=== PATIENT | male | born 2000 | race Caucasian/White ===

== ENCOUNTER 2022-08-07 16:47 | Emergency (ER) | payer OTHER ==
[2022-08-07 17:27] LABS: Absolute Lymphocytes (CBC) 1.3 K/uL (0.7-4.9); Hematocrit 43.8 % (39.6-49.0); Lymphocytes % 17.5 % (15.3-44.8); MPV 8.3 fL (7.6-11.3); RBC Red Blood Cell Count 4.82 M/uL (4.33-5.43)
[2022-08-07 17:31] LABS: Protime INR 1.2
[2022-08-07] MEDS ORDERED: NA CHLORIDE 0.9% 1,000 ML ONE (17:31)
[2022-08-07 17:38] LABS: ALT/SGPT 52 U/L (12-78); AST/SGOT 27 U/L (15-37); Albumin 4.2 g/dL (3.4-5.0); Alkaline Phosphatase 77 U/L (45-117); BUN Blood Urea Nitrogen 21 mg/dL (7-18); Bicarbonate 28 mmol/L (21-32); Bilirubin Direct 0.1 mg/dL (0-0.2); Bilirubin Total 0.4 mg/dL (0.2-1.0); Glomerular Filtration Rate 111 ml/min (=/>90); Glucose Level 96 mg/dL (74-106); Potassium 3.9 mmol/L (3.5-5.1); Protein, Total 7.5 g/dL (6.4-8.2); Sodium Level 139 mmol/L (136-145)
[2022-08-07 18:22] LABS: Urine Blood Negative (Negative); Urine Glucose Negative (Negative); Urine Protein Negative (Negative); Urine Specific Gravity 1.015 (1.005-1.030); Urine pH 6.5 (5.0-7.0)
[2022-08-07 18:41] LABS: Barbiturates NEGATIVE (NEGATIVE); Benzodiazepines NEGATIVE (NEGATIVE); Cocaine NEGATIVE (NEGATIVE); METHAMPHETAM NEGATIVE (NEGATIVE); Methadone NEGATIVE (NEGATIVE); Opiates NEGATIVE (NEGATIVE); Phencyclidine NEGATIVE (NEGATIVE); THC Cannibis NEGATIVE (NEGATIVE)
--- NOTE | 2022-08-07 18:48 | RAD REPORT ---
EXAM DESCRIPTION: CT - Head Brain Wo Cont - 08/07/2022 6:43 pm CLINICAL HISTORY: unresponsive Headache, drowsiness, alteration of consciousness. COMPARISON: No comparisons TECHNIQUE: All CT scans are performed using dose optimization technique as appropriate and may inclu de automated exposure control or mA/KV adjustment according to patient size. FINDINGS: No intracranial hemorrhage, hydrocephalus or extra-axial fluid collection.No areas of brai n edema or evidence of midline shift. The paranasal sinuses and mastoids are clear. The calvarium is intact. IMPRESSION: No acute intracranial abnormality.
--- NOTE | 2022-08-07 19:39 | EDPHYS ---
Physician Documentation [facility] Name: Rosales Cordova Age: 21 yrs Sex: Male : 2000 Arrival Date: 08/07/2022 Time: 16:50 Bed 6 Private MD: ED Physician Gordon Nguyen HPI: 08/07 17:00 This 21 yrs old Male presents to ER via EMS with complaints of Possible Overdose. cp 17:00 The patient presents with decreased mental status. Onset: The symptoms/episode cp began/occurred today. Possible causes: drug use. 17:00 Associated signs and symptoms: The patient has no apparent associated signs or cp symptoms. Current symptoms: In the emergency department the patient's symptoms have improved. Patient's baseline: Neuro: alert and fully oriented, Motor: no deficits, Ambulation: walks without assistance, Speech: normal. Patient is currently an inmate and was reportedly found outside on ground. Historical: - Allergies: 16:52 No Known Allergies; iw - Home Meds: 16:52 None [Active]; iw - PMHx: 16:52 None; iw - PSHx: 16:52 None; iw ROS: 17:05 Constitutional: Negative for body aches, chills, fever, poor PO intake. cp 17:05 Eyes: Negative for injury, pain, redness, and discharge. cp 17:05 Neck: Negative for pain with movement, pain at rest, stiffness. 17:05 Cardiovascular: Negative for chest pain, palpitations. 17:05 Respiratory: Negative for cough, shortness of breath, wheezing. 17:05 Abdomen/GI: Negative for abdominal pain, nausea, vomiting, and diarrhea. 17:05 Neuro: Negative for headache. 17:05 All other systems are negative. Exam: 17:08 ECG was reviewed by the Attending Physician. cp 17:10 Constitutional: The patient appears in no acute distress, alert, awake, cp non-diaphoretic, non-toxic, well developed, well nourished. 17:10 Head/Face: Normocephalic, atraumatic. cp 17:10 Eyes: Periorbital structures: appear normal, Pupils: equal, round, and reactive to light and accomodation, Conjunctiva: normal, no exudate, no injection, Sclera: no appreciated abnormality, Lids and lashes: appear normal, bilaterally. 17:10 ENT: External ear(s): are unremarkable, Ear canal(s): are normal, clear, TM's: dullness, bilaterally, Nose: is normal, Mouth: Lips: moist, Oral mucosa: moist, Posterior pharynx: Airway: no evidence of obstruction, patent. 17:10 Chest/axilla: Inspection: normal, Palpation: is normal, no crepitus, no tenderness. 17:10 Cardiovascular: Rate: normal, Rhythm: regular, Heart sounds: murmur, not appreciated, Edema: is not appreciated, JVD: is not appreciated. 17:10 Respiratory: the patient does not display signs of respiratory distress, Respirations: normal, no use of accessory muscles, no retractions, labored breathing, is not present, Breath sounds: are clear throughout, no decreased breath sounds, no stridor, no wheezing. 17:10 Abdomen/GI: Inspection: abdomen appears normal, Palpation: abdomen is soft and non-tender, in all quadrants. 17:10 Back: pain, is absent, ROM is normal. 17:10 Neuro: Orientation: unable to test, uncooperative, Mentation: responsive to voice able to follow commands. Vital Signs: 16:53 BP 124 / 82; Pulse 65; Resp 16; Temp 98.2; Pulse Ox 98% on R/A; iw 17:58 BP 102 / 84; Pulse 68; Resp 16; Pulse Ox 99% on R/A; iw 19:56 BP 128 / 79; Pulse 68; Resp 16; Pulse Ox 100% on R/A; jb4 MDM: 17:01 Patient medically screened. 19:38 Data reviewed: vital signs, nurses notes, lab test result(s), EKG, radiologic studies, cp CT scan. 19:38 Test interpretation: by ED physician or midlevel provider: ECG. Counseling: I had a cp detailed discussion with the patient and/or guardian regarding: the historical points, exam findings, and any diagnostic results supporting the discharge/admit diagnosis, lab results, radiology results, to return to the emergency department if symptoms worsen or persist or if there are any questions or concerns that arise at home. ED course: Patient spoke with nurse and informed her he had taken some mushrooms prior to be brought to ED. VSS. Will discharge back into custody of [employer] guards. 08/07 16:56 Order name: Acetaminophen; Complete Time: 19:27 08/07 16:56 Order name: Basic Metabolic Panel; Complete Time: 19:27 08/07 19:27 Interpretation: Normal except: BUN 21. 08/07 16:56 Order name: CBC with Diff; Complete Time: 19:27 08/07 19:27 Interpretation: Reviewed. 08/07 16:56 Order name: ETOH Level; Complete Time: 19:27 08/07 19:31 Interpretation: Reviewed. 08/07 16:56 Order name: Hepatic Function; Complete Time: 19:27 iw 08/07 19:31 Interpretation: Reviewed. 08/07 16:56 Order name: PT-INR; Complete Time: 19:27 08/07 19:31 Interpretation: Reviewed. 08/07 16:56 Order name: Ptt, Activated; Complete Time: 19:27 08/07 16:56 Order name: Salicylate; Complete Time: 19:27 08/07 16:56 Order name: Urine Drug Screen; Complete Time: 19:27 08/07 16:56 Order name: EKG; Complete Time: 16:57 08/07 17:08 Order name: CK; Complete Time: 19:27 08/07 19:32 Interpretation: Reviewed. 08/07 17:08 Order name: CT Head Brain wo Cont; Complete Time: 19:27 08/07 19:32 Interpretation: Report reviewed. 08/07 18:22 Order name: Urine Dipstick-Ancillary; Complete Time: 19:27 EDAR 08/07 16:56 Order name: EKG - Nurse/Tech; Complete Time: 17:18 08/07 16:56 Order name: IV Saline Lock; Complete Time: 17:18 08/07 16:56 Order name: Labs collected and sent; Complete Time: 17:18 08/07 16:56 Order name: Urine Dipstick-Ancillary (obtain specimen); Complete Time: 18:19 iw EC:08 Rate is 64 beats/min. Rhythm is regular. MO interval is normal. QRS interval is cp prolonged at 110 msec. QT interval is normal. T waves are Inverted in lead aVR. Interpreted by me. Reviewed by me. Administered Medications: 17:20 Drug: NS 0.9% 1000 ml Route: IV; Rate: 1 bolus; Site: right forearm; ph Disposition Summary: 08/07/22 19:38 Discharge Ordered Location: Home cp Problem: new cp Symptoms: have improved cp Condition: Stable cp Diagnosis - Encounter for observation for suspected toxic effect from ingested substance ruled cp out Followup: cp - With: Emergency Department - When: As needed - Reason: Worsening of condition Discharge Instructions: - Discharge Summary Sheet cp - Illegal Drug Use Information, Adult cp Forms: - Medication Reconciliation Form cp - Thank You Letter cp - Antibiotic Education cp - Prescription Opioid Use cp Signatures: Dispatcher [employer] Leora Morrissey RN RN iw Kelly Allison RN RN ph Gordon Herrera PA PA cp Corrections: (The following items were deleted from the chart) 17:08 16:56 Suicide Screening ([place]) ordered. toña ding
--- NOTE | 2022-08-07 19:39 | ER ---
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 Coronavirus screen: At this time, the client does not indicate any symptoms associated with coronavirus-19. Ebola Screen: Patient negative for fever greater than or equal to 101.5 degrees Fahrenheit, and additional compatible Ebola Virus Disease symptoms Patient denies exposure to infectious person. Patient denies travel to an Ebola-affected area in the 21 days before illness onset. No symptoms or risks identified at this time. Initial Sepsis Screen: Does the patient meet any 2 criteria? No. Patient's initial sepsis screen is negative. Does the patient have a suspected source of infection? No. Patient's initial sepsis screen is negative. Risk Assessment: Do you want to hurt yourself or someone else? Patient reports no desire to harm self or others. Onset of symptoms was August 07, 2022. 16:51 Method Of Arrival: EMS: [facility] iw 16:51 Acuity: TU 3 iw Historical: - Allergies: 16:52 No Known Allergies; iw - Home Meds: 16:52 None [Active]; iw - PMHx: 16:52 None; iw - PSHx: 16:52 None; iw Screenin:19 Nutritional screening: No deficits noted. Tuberculosis screening: No symptoms or risk iw factors identified. Fall Risk IV access (20 points). 19:30 Abuse screen: Denies threats or abuse. jb4 Assessment: 17:18 General: Appears in no apparent distress. Behavior is calm, quiet. Pain: Unable to use iw pain scale. Patient appears quiet. Neuro: Liriano Agitation-Sedation Scale (RASS): -1 Drowsy Level of Consciousness is awake, alert, Oriented to Moves all extremities. Full function. Cardiovascular: Patient's skin is warm and dry. Respiratory: Respiratory effort is even, unlabored, Respiratory pattern is regular, symmetrical. GI: Abdomen is flat, non-distended. Derm: Skin is intact, is healthy with good turgor. Musculoskeletal: Range of motion: intact in all extremities. 17:40 Reassessment: pt trying to get out of bed, trying to pull out IV, [employer] guard at bedside iw , pt hands and ankles remain cuffed by [employer]. When i asked pt what he took he said "shrooms". 18:19 Reassessment: pt more talkative, states he does not remember what happened today , when iw asked if he took something he said no, pt more cooperative, pt cleaned of incontinence, linens changed, straight cath urine sent to lab. 19:30 Reassessment: Patient appears in no apparent distress at this time. Patient and/or jb4 family updated on plan of care and expected duration. Pain level reassessed. Patient is alert, oriented x 3, equal unlabored respirations, skin warm/dry/pink. Vital Signs: 16:53 BP 124 / 82; Pulse 65; Resp 16; Temp 98.2; Pulse Ox 98% on R/A; iw 17:58 BP 102 / 84; Pulse 68; Resp 16; Pulse Ox 99% on R/A; iw 19:56 BP 128 / 79; Pulse 68; Resp 16; Pulse Ox 100% on R/A; jb4 ED Course: 16:50 Patient arrived in ED. iw 16:51 Leora Moran, RN is Primary Nurse. iw 16:52 Triage completed. iw 16:52 Arm band placed on. iw 16:56 Gordon Herrera PA is PHCP. cp 16:56 Gordon Nguyen MD is Attending Physician. cp 17:09 EKG done, by ED staff, reviewed by Gordon GLYNN. Inserted saline lock: 22 gauge in ss right forearm, using aseptic technique. Blood collected. 18:21 Leora Moran RN is Primary Nurse. iw 18:47 CT Head Brain wo Cont In Process Unspecified. EDMS 19:00 Patient has correct armband on for positive identification. Bed in low position. Call jb4 light in reach. Side rails up X 1. Client placed on continuous cardiac and pulse oximetry monitoring. NIBP monitoring applied. geotechnical engineer on. 19:57 No provider procedures requiring assistance completed. IV discontinued, intact, jb4 bleeding controlled, No redness/swelling at site. Pressure dressing applied. Administered Medications: 17:20 Drug: NS 0.9% 1000 ml Route: IV; Rate: 1 bolus; Site: right forearm; ph Medication: 19:30 VIS not applicable for this client. jb4 Outcome: 19:38 Discharge ordered by MD. neal 19:57 Discharged to Law Enforcement jb4 19:57 Condition: stable 19:57 Discharge instructions given to patient, Instructed on discharge instructions, follow up and referral plans. Demonstrated understanding of instructions, follow-up care. 19:57 Patient left the ED. jb4 Signatures: Dispatcher [employer] EDMS Leora Moran RN RN Radha Velazquez RN RN Kelly Allison RN RN Gordon Herrera PA PA cp Bryson, James RN RN jb4 Corrections: (The following items were deleted from the chart) 17:18 16:53 Pulse 65bpm; Resp 16bpm; Pulse Ox 98% RA; iw iw 17:48 17:40 Reassessment: pt trying to get out of bed, trying to pull out IV, [employer] guard at iw bedside , pt hands and ankles remain cuffed by [employer] iw
--- NOTE | 2022-08-08 12:32 | EKG ---
Test Date: 2022-08-07 Test Time: 16:56:19 Physical Chemistry Teacher: JUAREZ MEASUREMENT RESULTS: Intervals: Rate: 64 DC: 136 QRSD: 110 QT: 418 QTc: 431 [place]: P: 46 DC: 136 QRS: 53 T: 36 INTERPRETIVE STATEMENTS: Normal sinus rhythm Normal ECG No previous ECG available for comparison Electronically Signed On 08-08-22 12:32:03 CDT by Anirudh Beaver
[2022-08-09 02:43] VITALS: TEMP 98.2
[2022-08-09 02:53] VITALS: BP 128/79; O2SAT 100
== END 2022-08-07 19:57 | disposition home or self-care (01) ==
LOC: ER 16:47
DX: Z03.6 Encounter for observation for suspected toxic effect from ingested substance ruled out (principal)
CPT/HCPCS: 36415; 70450; 80048; 80076; 80307; 80320; 80329; 81003; 82550; 85025; 85610; 85730; 93005; 99284; J7030